=== PATIENT | male | born 1975 | race Caucasian/White ===

== ENCOUNTER 2016-09-26 23:35 | Emergency (ER) | payer SELFPAY ==
[2016-09-27] MEDS ORDERED: KETOROLAC 30 MG/ML VIAL ONE (00:23)
== END 2016-09-27 03:52 | disposition home or self-care (01) ==
LOC: ER 23:35
DX: R31.29 Other microscopic hematuria (principal); K21.9 Gastro-esophageal reflux disease without esophagitis; F41.1 Generalized anxiety disorder; I25.2 Old myocardial infarction; F17.210 Nicotine dependence, cigarettes, uncomplicated
CPT/HCPCS: 36415; 74176; 80053; 81001; 83690; 85025; 87088; 96374

== ENCOUNTER 2016-10-02 17:14 | Emergency (ER) | payer OTHER ==
[2016-10-02] MEDS ORDERED: KETOROLAC 60 MG/2 ML VIAL IM ONE (18:39)
== END 2016-10-02 19:11 | disposition home or self-care (01) ==
LOC: ER 17:14
DX: R10.32 Left lower quadrant pain (principal)
CPT/HCPCS: 81003; 96372